=== PATIENT | female | born 1975 | race Caucasian/White ===

== ENCOUNTER 2016-07-01 15:23 | Emergency (ER) | payer MEDICAID ==
[2016-07-01] MEDS ORDERED: MECLIZINE HCL 25 MG TABLET PO ONE (15:46)
--- NOTE | 2016-07-01 15:48 | ER Document Report ---
ED Medical Screen (RME) - General Stated Complaint: DIZZINESS Time seen by provider: 15:43 Notes: 41-year-old female complaining of vertigo since 5 AM. Occurred in the past. Feels very fatigued. His been exposed to people with the flu bronchitis. Complaining of mild sore throat and mild cough, no headache. Hysterectomy. And is able to take meclizine she took the last time when she had vertigo. Benadryl causes hives. I have greeted and performed a rapid initial assessment of this patient. A comprehensive ED assessment, evaluation of the patient, analysis of test results , and completion of the medical decision making process will be conducted by additional ED providers. TRAVEL OUTSIDE OF THE [place] IN LAST 30 DAYS: No - Related Data Allergies/Adverse Reactions: diphenhydramine HCl [From Benadryl] Allergy (Intermediate, Verified 05/05/15 12: 01) rash oxycodone HCl [From Percocet] Allergy (Intermediate, Verified 05/05/15 12:01) migrain penicillin V potassium [From Pen-Vee K] Allergy (Intermediate, Verified 12:01) GI upset propoxyphene napsylate [From Darvocet-N 100] Allergy (Intermediate, Verified 12:01) Migraine hydrocodone [Hydrocodone] Allergy (Verified 05/05/15 12:01) ibuprofen [From Motrin] Allergy (Verified 05/05/15 12:01) Past Medical History - Past Medical History Cardiac Medical History: Reports: Hx Hypertension Neurological Medical History: Reports: Hx Migraine Endocrine Medical History: Reports: Hx Diabetes Mellitus Type 2 Renal/ Medical History: Reports: Hx Kidney Stones Musculoskeltal Medical History: Reports Hx Musculoskeletal Deformity, Reports Hx Musculoskeletal Trauma Psychiatric Medical History: Reports: Hx Attention Deficit Hyperactivity Disorder Traumatic Medical History: Reports: Hx Fractures Past Surgical History: Reports: Hx Section - x4, Hx Gastric Bypass Surgery, Hx Hysterectomy - complete, Hx Kidney (Renal Surgery) - left stent placed/removed - Immunizations Immunizations up to date: Yes Hx Diphtheria, Pertussis, Tetanus Vaccination: Yes - unk Physical Exam - Vital signs Vitals: Temp Pulse Resp BP Pulse Ox 98.4 F 117 H 16 162/95 H 97 07/01/16 15:36 07/01/16 15:36 07/01/16 15:36 07/01/16 15:36 07/01/16 15:36 Course - Vital Signs Vital signs: Temp Pulse Resp BP Pulse Ox 98.4 F 117 H 16 162/95 H 97 07/01/16 15:36 07/01/16 15:36 07/01/16 15:36 07/01/16 15:36 07/01/16 15:36
[2016-07-01 18:09] VITALS: BP 132/87
--- NOTE | 2016-07-01 18:10 | ER Document Report ---
ED ENT - General Chief Complaint: Dizziness Stated Complaint: DIZZINESS Time seen by provider: 18:09 Mode of Arrival: Ambulatory Information source: Patient Notes: 41-year-old female presents to ED for complain of vertigo with ear pain, runny nose, mild cough, mild sore throat, but no headache. States she has a history of vertigo in the past and meclizine really made her feel much better TRAVEL OUTSIDE OF THE [place] IN LAST 30 DAYS: No - HPI Patient complains to provider of: Ear problem, Nose problem Onset: Last week Onset/Duration: Intermittent Quality of pain: Achy Severity: Mild Pain Level: 1 Location of pain: Ears, Nose, Sinus Associated symptoms: Ear pain, Runny nose, Sinus pain, Sore throat, Vertigo Similar symptoms previously: Yes Recently seen / treated by doctor: No - Related Data Allergies/Adverse Reactions: diphenhydramine HCl [From Benadryl] Allergy (Intermediate, Verified 05/05/15 12: 01) rash oxycodone HCl [From Percocet] Allergy (Intermediate, Verified 05/05/15 12:01) migrain penicillin V potassium [From Pen-Vee K] Allergy (Intermediate, Verified 12:01) GI upset propoxyphene napsylate [From Darvocet-N 100] Allergy (Intermediate, Verified 12:01) Migraine hydrocodone [Hydrocodone] Allergy (Verified 05/05/15 12:01) ibuprofen [From Motrin] Allergy (Verified 05/05/15 12:01) Past Medical History - General Information source: Patient - Social History Smoking Status: Never Smoker Cigarette use (# per day): No Chew tobacco use (# tins/day): No Smoking Education Provided: No Frequency of alcohol use: None Drug Abuse: None Occupation: teacher Lives with: Alone - Alone with kids Family History: Arthritis, CAD, CVA, DM, Hyperlipidemia, Hypertension, Malignancy Patient has suicidal ideation: No Patient has homicidal ideation: No - Past Medical History Cardiac Medical History: Reports: Hx Hypertension Pulmonary Medical History: Reports: None EENT Medical History: Reports: None Neurological Medical History: Reports: Hx Migraine, Other - Vertigo Endocrine Medical History: Reports: Hx Diabetes Mellitus Type 2 Renal/ Medical History: Reports: Hx Kidney Stones Malignancy Medical History: Reports: Other - Uterine cancer GI Medical History: Reports: None Musculoskeltal Medical History: Reports Hx Musculoskeletal Deformity, Reports Hx Musculoskeletal Trauma Skin Medical History: Reports None Psychiatric Medical History: Reports: Hx Attention Deficit Hyperactivity Disorder Traumatic Medical History: Reports: Hx Fractures Infectious Medical History: Reports: None Past Surgical History: Reports: Hx Section - x4, Hx Gastric Bypass Surgery, Hx Hysterectomy - complete, Hx Kidney (Renal Surgery) - left stent placed/removed - Immunizations Immunizations up to date: Yes Hx Diphtheria, Pertussis, Tetanus Vaccination: Yes - unk Review of Systems - Review of Systems Constitutional: Recent illness EENT: Ear pain, Nose discharge, Sinus discharge Cardiovascular: Dizziness Respiratory: Cough Gastrointestinal: No symptoms reported Genitourinary: No symptoms reported Female Genitourinary: No symptoms reported Musculoskeletal: No symptoms reported Skin: No symptoms reported Hematologic/Lymphatic: No symptoms reported Neurological/Psychological: No symptoms reported -: Yes All other systems reviewed and negative Physical Exam - Vital signs Vitals: Temp Pulse Resp BP Pulse Ox 98.4 F 117 H 16 162/95 H 97 07/01/16 15:36 07/01/16 15:36 07/01/16 15:36 07/01/16 15:36 07/01/16 15:36 Interpretation: Normal - General General appearance: Appears well, Alert - HEENT Head: Normocephalic, Atraumatic Eyes: Normal Pupils: PERRL Ears: Normal External canal: Normal Tympanic membrane: Normal Sinus: Normal Nasal: Purulent discharge, Swelling Mouth/Lips: Normal Mucous membranes: Normal Pharynx: Post nasal drainage Neck: Normal - Respiratory Respiratory status: No respiratory distress Chest status: Nontender Breath sounds: Normal Chest palpation: Normal - Cardiovascular Rhythm: Regular Heart sounds: Normal auscultation Murmur: No - Abdominal Inspection: Normal Distension: No distension Bowel sounds: Normal Tenderness: Nontender Organomegaly: No organomegaly - Back Back: Normal, Nontender - Extremities General upper extremity: Normal inspection, Nontender, Normal color, Normal ROM , Normal temperature General lower extremity: Normal inspection, Nontender, Normal color, Normal ROM , Normal temperature, Normal weight bearing. No: Jh's sign - Neurological Neuro grossly intact: Yes Cognition: Normal Orientation: AAOx4 [place] Coma Scale Eye Opening: Spontaneous [place] Coma Scale Verbal: Oriented Allen Coma Scale Motor: Obeys Commands Allen Coma Scale Total: 15 Speech: Normal Motor strength normal: LUE, RUE, LLE, RLE Sensory: Normal - Psychological Associated symptoms: Normal affect, Normal mood - Skin Skin Temperature: Warm Skin Moisture: Dry Skin Color: Normal Course - Vital Signs Vital signs: Temp Pulse Resp BP Pulse Ox 98.4 F 95 18 132/87 H 98 07/01/16 15:36 07/01/16 18:09 07/01/16 18:09 07/01/16 18:09 07/01/16 18:09 Discharge - Discharge Clinical Impression: Vertigo URI (upper respiratory infection) Qualifiers: URI type: unspecified URI Qualified Code(s): J06.9 - Acute upper respiratory infection, unspecified Condition: Stable Disposition: HOME, SELF-CARE Additional Instructions: UPPER RESPIRATORY ILLNESS: You have a viral infection of the respiratory passages -- a "cold." This common infection causes nasal congestion, drainage, and often sore throat and cough. It is highly contagious. The disease usually lasts about 10 to 14 days. There is no "cure" for the viral infection -- it must run its course. If there is a complication, such as bacterial infection in the nose, sinuses, middle ear, or bronchial tubes, antibiotics may be required. The antibiotics won't affect the virus. Drink plenty of fluids. A humidifier may help. An expectorant medication or decongestant may make you more comfortable. Use acetaminophen or ibuprofen for fever or aches. See the doctor if fever persists over two days, if there is any significant worsening of your symptoms, or if you simply fail to improve as expected. COUGH-SUPPRESSANT & EXPECTORANT MEDICATION: You are to use a cough medication as needed for relief of symptoms. This medicine is a combination of an expectorant (to make the mucous thinner and more easily "coughed up") and a cough suppressant (to reduce the frequency of coughing). The cough-suppressant medicine is related to narcotics. You may experience mild nausea and sleepiness. Some patients who are very sensitive to narcotics may have stomach pain from this medicine. Taking the medicine with food reduces these side effects. Do not drive or work with machinery until you know how this medicine affects you. The expectorant should have no side effects. Iodine-containing expectorants (such as organidin) should not be taken by persons with active thyroid disease unless approved by your doctor. Call the doctor if you develop shortness of breath, hives, rash, itching, lightheadedness, or severe nausea and vomiting. USE OF ACETAMINOPHEN (Tylenol): Acetaminophen may be taken for pain relief or fever control. It's much safer than aspirin, offering a wider range of "safe" dosages. It is safe during . Some brand names are Tylenol, Panadol, Datril, Anacin 3, Tempra, and Liquiprin. Acetaminophen can be repeated every four hours. The following are maximum recommended dosages: >89 pounds or adults 650 mg to 900 mg Acetaminophen can be repeated every four hours. Maximum dose not to exceed 4000 mg a day. Vertigo You have experienced an episode of vertigo -- a whirling dizziness which may be accompanied by nausea and vomiting or staggering. Vertigo is often caused by an irritation of the inner ear, in which case it is called labyrinthitis. It can also be a symptom of a degenerating inner ear, nerve damage, or brain injury. Your physician has evaluated you to determine whether any further testing is necessary. Vertigo is often treated with dramamine or meclizine. These medications are helpful, but stronger medication may be needed if you are vomiting. Rest in bed. You should not drive or operate machinery until completely better. It may take one to three weeks for recovery. If there are new symptoms, such as decreased hearing or vision, severe headache, weakness or faintness, or confusion, call the physician. FOLLOW-UP CARE: If you have been referred to a physician for follow-up care, call the physician s office for an appointment as you were instructed or within the next two days. If you experience worsening or a significant change in your symptoms, notify the physician immediately or return to the Emergency Department at any time for re-evaluation. Please call your primary doctor tomorrow and schedule an appointment for follow- up visit and asked him for referral to ENT for your vertigo. Prescriptions: Meclizine HCl 25 mg PO Q6HP PRN #14 tablet PRN Reason: Forms: Elevated Blood Pressure, Return to Work
== END 2016-07-01 18:11 | disposition home or self-care (01) ==
LOC: ER 15:23
DX: J06.9 Acute upper respiratory infection, unspecified (principal); R42 Dizziness and giddiness; H92.09 Otalgia, unspecified ear; R05 Cough; I10 Essential (primary) hypertension; E11.9 Type 2 diabetes mellitus without complications; Z88.0 Allergy status to penicillin; Z88.6 Allergy status to analgesic agent; Z87.442 Personal history of urinary calculi; Z98.84 Bariatric surgery status; Z90.710 Acquired absence of both cervix and uterus
CPT/HCPCS: 87804; 99284

== ENCOUNTER 2018-03-23 14:58 | Emergency (ER) | payer OTHER ==
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
[2018-03-23 17:37] VITALS: BP 180/90
== END 2018-03-23 18:03 | disposition home or self-care (01) ==
LOC: ER 14:58
DX: M79.632 Pain in left forearm (principal); M79.602 Pain in left arm; V87.7XXA Person injured in collision between other specified motor vehicles (traffic), initial encounter; I10 Essential (primary) hypertension; E11.9 Type 2 diabetes mellitus without complications
CPT/HCPCS: 99283

== ENCOUNTER 2018-04-16 03:44 | Emergency (ER) | payer OTHER ==
[2018-04-16] MEDS ORDERED: PROCHLORPERAZINE EDISYLATE INJ 10 MG/2 ML VIAL IV ONE (04:09)
[2018-04-16] MEDS ORDERED: KETOROLAC TROMETHAMINE INJ/PF 30 MG/1 ML SDV IV ONE (04:19)
[2018-04-16 04:22] LABS: ABSOLUTE LYMPHOCYTES (AUTO) 1.4 10^3/uL (0.5-4.7); ABSOLUTE MONOCYTES (AUTO) 0.2 10^3/uL (0.1-1.4); ABSOLUTE NEUT (AUTO) 4.9 10^3/uL (1.7-8.2); BASOPHILS % (AUTO) 0.1 % (0-2); EOSINOPHILS % (AUTO) 0.5 % (0-6); HEMATOCRIT 38.4 % (36.0-47.0); HEMOGLOBIN 13.3 g/dL (12.0-15.5); LYMPHOCYTES % (AUTO) 21.2 % (13-45); MEAN CORPUSCULAR HEMOGLOBIN 28.5 pg (27.0-33.4); MEAN CORPUSCULAR HGB CONC 34.7 g/dL (32.0-36.0); MEAN CORPUSCULAR VOLUME 82 fl (80-97); MONOCYTES % (AUTO) 3.7 % (3-13); PLATELET COUNT 215 10^3/uL (150-450); RED BLOOD COUNT 4.66 10^6/uL (3.72-5.28); RED CELL DISTRIBUTION WIDTH 12.4 % (11.5-14.0); SEGMENTED NEUTROPHILS % (AUTO) 74.5 % (42-78); TOTAL CELLS COUNTED % (AUTO) 100 %; WHITE BLOOD COUNT 6.6 10^3/uL (4.0-10.5)
[2018-04-16] MEDS ORDERED: NORMAL SALINE 1000 ML 1,000 ML IV ONE (04:22)
[2018-04-16 04:39] LABS: ALANINE AMINOTRANSFERASE 37 U/L (9-52); ALBUMIN 4.3 g/dL (3.5-5.0); ALKALINE PHOSPHATASE 115 U/L (38-126); ANION GAP 11 (5-19); ASPARTATE AMINO TRANSFERASE 30 U/L (14-36); BILIRUBIN,DIRECT 0.3 mg/dL (0.0-0.4); BILIRUBIN,TOTAL 0.7 mg/dL (0.2-1.3); BLOOD UREA NITROGEN 12 mg/dL (7-20); CALCIUM 9.3 mg/dL (8.4-10.2); CARBON DIOXIDE 28 mmol/L (22-30); CHLORIDE 103 mmol/L (98-107); GLUCOSE 156 mg/dL (75-110); LIPASE 55.7 U/L (23-300); POTASSIUM 4.3 mmol/L (3.6-5.0); SODIUM 141.7 mmol/L (137-145); TOTAL PROTEIN 6.7 g/dL (6.3-8.2)
--- NOTE | 2018-04-16 05:49 | ER Document Report ---
ED General - General Chief Complaint: Headache Stated Complaint: ABDOMINAL PAIN Time Seen by Provider: 04/16/18 03:55 Notes: Patient is a 43-year-old female presenting to the emergency department complaining of vomiting and diarrhea. Patient states she has had over 10 episodes of vomiting each day for the last 3 days. Patient denies any blood in her emesis. Patient also admits to 5 episodes of diarrhea each day for the last 3 days. Patient also denies any blood in her diarrhea. Patient states she has generalized abdominal pain that started after the vomiting and diarrhea. Patient denies any fever, URI symptoms. Patient states she does have a history of migraines and this afternoon developed a migraine. States she took Maxalt around 1500 hrs. which has not helped her headache which is why she presents to the emergency room. Patient denies any trauma to her head. Past medical history: Migraines Medications: Maxalt Allergies: Benadryl, oxycodone, penicillin Surgical history: section, total hysterectomy Patient denies cigarette smoking, denies illicit drug use, denies EtOH use. TRAVEL OUTSIDE OF THE [place] IN LAST 30 DAYS: No - Related Data Allergies/Adverse Reactions: diphenhydramine HCl [From Benadryl] Allergy (Intermediate, Verified 03/23/18 14: 59) rash oxycodone HCl [From Percocet] Allergy (Intermediate, Verified 03/23/18 14:59) migrain penicillin V potassium [From Pen-Vee K] Allergy (Intermediate, Verified 14:59) GI upset propoxyphene napsylate [From Darvocet-N 100] Allergy (Intermediate, Verified 10/03 14:59) Migraine hydrocodone [Hydrocodone] Allergy (Verified 03/23/18 14:59) ibuprofen [From Motrin] Allergy (Verified 03/23/18 14:59) Past Medical History - General Information source: Patient - Social History Smoking Status: Never Smoker Frequency of alcohol use: None Drug Abuse: None Lives with: Family Family History: Arthritis, CAD, CVA, DM, Hyperlipidemia, Hypertension, Malignancy Patient has suicidal ideation: No Patient has homicidal ideation: No - Past Medical History Cardiac Medical History: Reports: Hx Hypertension Neurological Medical History: Reports: Hx Migraine Endocrine Medical History: Reports: Hx Diabetes Mellitus Type 2 Renal/ Medical History: Reports: Hx Kidney Stones. Denies: Hx Peritoneal Dialysis Musculoskeletal Medical History: Reports Hx Musculoskeletal Deformity, Reports Hx Musculoskeletal Trauma Psychiatric Medical History: Reports: Hx Attention Deficit Hyperactivity Disorder Traumatic Medical History: Reports: Hx Fractures Past Surgical History: Reports: Hx Section - x4, Hx Gastric Bypass Surgery, Hx Hysterectomy, Hx Kidney (Renal Surgery) - left stent placed/removed - Immunizations Immunizations up to date: Yes Hx Diphtheria, Pertussis, Tetanus Vaccination: Yes - unk Review of Systems - Review of Systems Constitutional: No symptoms reported EENT: denies: Eye pain, Blurred vision Cardiovascular: No symptoms reported Respiratory: No symptoms reported Gastrointestinal: See HPI Genitourinary: denies: Burning, Dysuria Female Genitourinary: See HPI Musculoskeletal: No symptoms reported Skin: No symptoms reported Hematologic/Lymphatic: No symptoms reported Neurological/Psychological: No symptoms reported Physical Exam - Vital signs Vitals: Temp Pulse Resp BP Pulse Ox 97.6 F 93 17 182/104 H 99 04/16/18 03:48 04/16/18 03:48 04/16/18 03:48 04/16/18 03:48 04/16/18 03:48 - Notes Notes: GENERAL: Alert, interacts well. No acute distress. HEAD: Normocephalic, atraumatic. EYES: Pupils equal, round, and reactive to light. Extraocular movements intact. No photophobia noted ENT: Oral mucosa moist, tongue midline. NECK: Full range of motion. Supple. Trachea midline. LUNGS: Clear to auscultation bilaterally, no wheezes, rales, or rhonchi. No respiratory distress. HEART: Regular rate and rhythm. No murmur ABDOMEN: Soft, Non-distended. Bowel sounds present in all 4 quadrants. Generalized tenderness left upper quadrant. No Krueger sign, no McBurney's point tenderness. EXTREMITIES: Moves all 4 extremities spontaneously. No edema, normal radial and dorsalis pedis pulses bilaterally. No cyanosis. BACK: no cervical, thoracic, lumbar midline tenderness. No saddle anesthesia, normal distal neurovascular exam. NEUROLOGICAL: Alert and oriented x3. Normal speech. cranial nerves II through XII grossly intact. PSYCH: Normal affect, normal mood. SKIN: Warm, dry, normal turgor. No rashes or lesions noted. Course - Re-evaluation Re-evalutation: 04/16/18 05:47 After treatments in the emergency room the patient's headache has resolved. She has had no episodes of vomiting or diarrhea in the emergency room. Patient states she no longer has abdominal pain as well. Discussed home use of antiemetics and [id number] Imodium. No signs of leukocytosis, anemia, electrolyte abnormalities on lab work. Close return precautions discussed. Vital signs reviewed, nursing notes reviewed. 04/16/18 05:49 Last blood pressure documented was 139/80. - Vital Signs Vital signs: Temp Pulse Resp BP Pulse Ox 97.6 F 93 17 182/104 H 99 04/16/18 03:48 04/16/18 03:48 04/16/18 03:48 04/16/18 03:48 04/16/18 03:48 - Laboratory Result Diagrams: 04/16/18 04:09 04/16/18 04:09 Laboratory results interpreted by me: 04/16/18 04:09 Glucose 156 H Discharge - Discharge Clinical Impression: Nausea, vomiting and diarrhea Headache Qualifiers: Headache type: unspecified Headache chronicity pattern: acute headache Intractability: not intractable Qualified Code(s): R51 - Headache Condition: Stable Disposition: HOME, SELF-CARE Instructions: Antinausea Medication ([facility]), Diarrhea, Nonspecific ([facility]), Intravenous Compazine for Headaches ([facility]), Headache ([facility]), Toradol Injection ( [facility]) Additional Instructions: As we discussed you have been seen and treated in the emergency department for any headache, nausea, vomiting, diarrhea. You should take antinausea medications as prescribed. You can take [id number] Imodium for the diarrhea. Your labs revealed no signs of electrolyte abnormalities. Please continue to stay well-hydrated with Pedialyte, Gatorade, water. Please make an appointment with your primary care provider in the next 24-48 hours. Please return to the emergency room for any other concerning symptoms. Prescriptions: Ondansetron [Zofran Odt 4 mg Tablet] 1 - 2 tab PO Q4H PRN #15 tab.rapdis PRN Reason: For Nausea/Vomiting
[2018-04-16 06:01] VITALS: BP 163/84
== END 2018-04-16 06:01 | disposition home or self-care (01) ==
LOC: ER 03:44
DX: R11.2 Nausea with vomiting, unspecified (principal); R19.7 Diarrhea, unspecified; R51 Headache; R10.84 Generalized abdominal pain; Z79.899 Other long term (current) drug therapy; I10 Essential (primary) hypertension; E11.9 Type 2 diabetes mellitus without complications
CPT/HCPCS: 99284; 96361; 96374; 96375; 36415; 83690; 85025; 80053; J1885; J0780; J7030